=== PATIENT | male | born 1980 | race Caucasian/White ===

== ENCOUNTER 2019-07-10 11:18 | Emergency (ER) | payer OTHER ==
--- NOTE | 2019-07-10 11:27 | Emergency Department Report ---
Blank Doc - Documentation Documentation: 39-year-old male that presents with dizziness. Stated dizziness causes him to have anxiety. This initial assessment/diagnostic orders/clinical plan/treatment(s) is/are subject to change based on patient's health status, clinical progression and re- assessment by fellow clinical providers in the ED. Further treatment and workup at subsequent clinical providers discretion. Patient/guardians urged not to elope from the ED as their condition may be serious if not clinically assessed and managed. Initial orders include: 1- Patient sent to [facility] for further evaluation and treatment 2- labs 3- orthostatic vitals
--- NOTE | 2019-07-10 12:03 | Emergency Department Report ---
ED General Adult HPI - General Chief complaint: Dizziness Stated complaint: Anxiety/DIZZINESS Time Seen by Provider: 07/10/19 11:27 Source: patient Mode of arrival: Ambulatory Limitations: No Limitations - History of Present Illness Initial comments: 39-year-old male who is in residence at the [facility]. He states he stopped his Xanax 2 months ago. He would like to have it restarted because the BuSpar that they are prescribing at the [place] is "not working". States that he has asthma and he is still smoking. He states he wakes up in the morning and feels dizzy as if he has just had his first cigarette and it makes him "feel high". He is not dizzy at this time. He denies fever or chills headaches or any focal neurological symptoms. He is not hostile, violent or suicidal. He does not depression. He states he's had an anxiety disorder for many years. -: Gradual, days(s) (chief complaint as above for several days), year(s) Radiation: other (no pain complaint) Consistency: intermittent (states in the morning) Improves with: none Worsens with: none Associated Symptoms: denies other symptoms, other (anxiety) - Related Data Allergies Allergy/AdvReac Type Severity Reaction Status Date / Time No Known Allergies Allergy Unverified 07/10/19 11:21 ED Review of Systems ROS: Stated complaint: Anxiety/DIZZINESS Other details as noted in HPI Constitutional: denies: chills, fever Eyes: denies: eye pain, eye discharge, vision change ENT: denies: ear pain, throat pain Respiratory: denies: cough, shortness of breath, wheezing Cardiovascular: denies: chest pain, palpitations Endocrine: no symptoms reported Gastrointestinal: denies: abdominal pain, nausea, diarrhea Genitourinary: denies: urgency, dysuria Musculoskeletal: denies: back pain, joint swelling, arthralgia Skin: denies: rash, lesions Neurological: denies: headache, weakness, paresthesias Psychiatric: denies: anxiety, depression Hematological/Lymphatic: denies: easy bleeding, easy bruising ED Past Medical Hx - Past Medical History Previous Medical History?: Yes Hx Psychiatric Treatment: Yes (anxiety) - Surgical History Past Surgical History?: No - Social History Smoking Status: Current Every Day Smoker Substance Use Type: Tranquilizers ED Physical Exam - General Limitations: No Limitations General appearance: alert, in no apparent distress - Head Head exam: Present: atraumatic, normocephalic - Eye Eye exam: Present: normal appearance. Absent: scleral icterus - ENT ENT exam: Present: mucous membranes moist - Neck Neck exam: Present: normal inspection. Absent: tenderness, meningismus - Respiratory Respiratory exam: Present: normal lung sounds bilaterally. Absent: respiratory distress - Cardiovascular Cardiovascular Exam: Present: regular rate, normal rhythm. Absent: systolic murmur, diastolic murmur, rubs, gallop - GI/Abdominal GI/Abdominal exam: Present: soft, normal bowel sounds. Absent: distended, tenderness, guarding, rebound, rigid - Rectal Rectal exam: Present: deferred - Extremities Exam Extremities exam: Present: normal inspection, full ROM. Absent: tenderness - Back Exam Back exam: Present: normal inspection - Neurological Exam Neurological exam: Present: alert, oriented X3, CN II-XII intact. Absent: motor sensory deficit - Psychiatric Psychiatric exam: Present: normal affect, normal mood - Skin Skin exam: Present: warm, dry, intact, normal color. Absent: rash ED Course Vital Signs 07/10/19 11:22 Temperature 97.9 F Pulse Rate 105 H Respiratory 16 Rate Blood Pressure 119/71 O2 Sat by Pulse 96 Oximetry ED Medical Decision Making - Lab Data Result diagrams: 07/10/19 11:58 07/10/19 11:58 Laboratory Results - last 24 hr 07/10/19 07/10/19 07/10/19 11:58 11:58 11:58 WBC 7.2 RBC 5.06 H Hgb 15.0 Hct 44.5 MCV 88 MCH 30 MCHC 34 RDW 14.1 Plt Count 266 Lymph % (Auto) Analytics Manager [place] % (Auto) Analytics Manager Eos % (Auto) Analytics Manager Baso % (Auto) Analytics Manager Lymph # Analytics Manager [place] # Analytics Manager Eos # Analytics Manager Baso # Analytics Manager Seg Neutrophils % Analytics Manager Seg Neutrophils # Analytics Manager Sodium 139 Potassium 4.2 Chloride 102.2 Carbon Dioxide 20 L Anion Gap 21 BUN 19 Creatinine 0.8 Estimated GFR > 60 BUN/Creatinine Ratio 24 Glucose 135 H Calcium 9.0 Urine Color Yellow Urine Turbidity Clear Urine pH 5.0 Ur Specific [place] 1.021 Urine Protein <15 mg/dl Urine Glucose (UA) Neg Urine Ketones Neg Urine Blood Neg Urine Nitrite Neg Urine Bilirubin Neg Urine Urobilinogen < 2.0 Ur Leukocyte Esterase Neg Urine WBC (Auto) 1.0 Urine RBC (Auto) 1.0 U Epithel Cells (Auto) < 1.0 Critical care attestation.: If time is entered above; I have spent that time in minutes in the direct care of this critically ill patient, excluding procedure time. ED Disposition Clinical Impression: Dizziness, Anxiety Disposition: DC-01 TO HOME OR SELFCARE Is pt being admited?: No Does the pt Need Aspirin: No Condition: Stable Instructions: Dizziness (ED), Anxiety (ED) Additional Instructions: Return to the emergency department any acute change or problems. Continue with the usual providers regarding anxiety problem. Referrals: PRIMARY CARE, [Primary Care Provider] - 3-5 Days [facility] [Provider Group] - 3-5 Days Time of Disposition: 13:20
[2019-07-10 12:22] LABS: Bilirubin,Urine NEG (Negative); Blood,Urine NEG (Negative); Color,Urine Yellow (Yellow); Protein,Urine <15 mg/dL mg/dL (Negative); Urobilinogen,Urine < 2.0 mg/dL (<2.0)
[2019-07-10 12:25] LABS: Hematocrit 44.5 % (35.5-45.6); Mean Corpuscular HGB Conc 34 % (32-34); Mean Corpuscular Volume 88 fl (84-94); Platelet Count 266 K/mm3 (140-440); Red Blood Count 5.06 M/mm3 (3.65-5.03); Red Cell Distribution Width 14.1 % (13.2-15.2)
[2019-07-10 12:31] LABS: BUN/Creatinine Ratio 24; Blood Urea Nitrogen 19 mg/dL (9-20); Hemolysis Index 60
[2019-07-10 13:54] VITALS: BP 118/70
== END 2019-07-10 13:27 | disposition home or self-care (01) ==
LOC: ED 11:18
DX: R42 Dizziness and giddiness (principal); F41.9 Anxiety disorder, unspecified; F17.200 Nicotine dependence, unspecified, uncomplicated
CPT/HCPCS: 36415; 80048; 81001; 85025; 99283

== ENCOUNTER 2019-07-28 09:57 | Emergency (ER) | payer SELFPAY ==
[2019-07-28 10:21] VITALS: BP 142/82
[2019-07-28] MEDS ORDERED: IPRATROPIUM/ALBUTEROL SULFATE 3 ML AMPUL.NEB IH ONE ×2 (10:23→16:50)
[2019-07-28] MEDS ORDERED: IBUPROFEN 600 MG TAB PO ONE (15:52)
--- NOTE | 2019-07-28 16:32 | Emergency Department Report ---
ED General Adult HPI - General Chief complaint: Dyspnea/Respdistress Stated complaint: DAVY/STOMACH PAIN/RT LEG PAIN Time Seen by Provider: 07/28/19 15:51 Source: patient Mode of arrival: Ambulatory Limitations: No Limitations - History of Present Illness Initial comments: 39yo male states that he has SOB, wheezing x 2 hrs ago; nausea and vomiting x 1 day. He further states that he has ran out of his pain medication for his Right leg. He states that his right leg pain is a 6 right now. -: days(s) (1 day) Severity scale (0 -10): 7 - Related Data Previous Rx's Medication Instructions Recorded Last Taken Type ALBUTEROL Inhaler (OR & NICU) 2 puff IH QID PRN 30 Days #8.5 gram 07/28/19 Unknown Rx [ProAir HFA Inhaler] DOXYCYCLINE Hyclate [Vibramycin 100 mg PO Q12HR 10 Days #20 capsule 07/28/19 Unknown Rx CAP] Ibuprofen [Motrin] 600 mg PO Q8H PRN 7 Days #21 tablet 07/28/19 Unknown Rx Allergies Allergy/AdvReac Type Severity Reaction Status Date / Time No Known Allergies Allergy Verified 07/28/19 16:08 ED Review of Systems ROS: Stated complaint: DAVY/STOMACH PAIN/RT LEG PAIN Other details as noted in HPI Comment: All other systems reviewed and negative Constitutional: see HPI Respiratory: see HPI Musculoskeletal: as per HPI, arthralgia ED Past Medical Hx - Past Medical History Previous Medical History?: Yes Hx Psychiatric Treatment: Yes (anxiety) Hx Asthma: Yes - Surgical History Past Surgical History?: No - Social History Smoking Status: Never Smoker Substance Use Type: None - Medications Home Medications: Home Medications Medication Instructions Recorded Confirmed Last Taken Type ALBUTEROL Inhaler (OR & NICU) 2 puff IH QID PRN 30 Days #8.5 gram 07/28/19 Unknown Rx [ProAir HFA Inhaler] DOXYCYCLINE Hyclate [Vibramycin 100 mg PO Q12HR 10 Days #20 capsule 07/28/19 Unknown Rx CAP] Ibuprofen [Motrin] 600 mg PO Q8H PRN 7 Days #21 tablet 07/28/19 Unknown Rx ED Physical Exam - General Limitations: No Limitations ED Course Vital Signs 07/28/19 10:16 Temperature 98.3 F Pulse Rate 100 H Respiratory 24 Rate Blood Pressure 142/82 O2 Sat by Pulse 98 Oximetry ED Medical Decision Making - Medical Decision Making 39yo male states that he has SOB, wheezing x 2 hrs ago; nausea and vomiting x 1 day. He further states that he has ran out of his pain medication for his Right leg. He verbalizes that he is currently being seen by a pain specialist. Pt is a smoker. He states that his right leg pain is a 6 right now. Pt's flu labs are negative; he will be started on antibiotics and ZAHRA inhaler preemptively due to his tobacco use. He was instructed to use Delsym over the counter for his cough, see his PCP in 2-3 days and f/u with ER as needed. Critical care attestation.: If time is entered above; I have spent that time in minutes in the direct care of this critically ill patient, excluding procedure time. ED Disposition Clinical Impression: Bronchitis, Arthralgia Disposition: TO HOME OR SELFCARE Is pt being admited?: No Does the pt Need Aspirin: No Condition: Stable Instructions: Chronic Bronchitis (ED) Additional Instructions: Pt's flu labs are negative; he will be started on antibiotics and ZAHRA inhaler preemptively due to his tobacco use. He was instructed to use Delsym over the counter for his cough, see his PCP in 2-3 days and f/u with ER as needed. Prescriptions: Ibuprofen [Motrin] 600 mg PO Q8H PRN 7 Days #21 tablet PRN Reason: Pain ALBUTEROL Inhaler (OR & NICU) [ProAir HFA Inhaler] 2 puff IH QID PRN 30 Days #8.5 gram PRN Reason: Shortness Of Breath DOXYCYCLINE Hyclate [Vibramycin CAP] 100 mg PO Q12HR 10 Days #20 capsule Referrals: PRIMARY CARE, [Primary Care Provider] - 3-5 Days [facility] [Outside] - 3-5 Days Time of Disposition: 18:45
[2019-07-28] MEDS ORDERED: IPRATROPIUM/ALBUTEROL SULFATE 3 ML AMPUL.NEB IH SCH (20:00)
== END 2019-07-28 18:56 | disposition home or self-care (01) ==
LOC: ED 09:57
DX: J40 Bronchitis, not specified as acute or chronic (principal); M79.604 Pain in right leg; Z79.1 Long term (current) use of non-steroidal anti-inflammatories (NSAID); Z79.899 Other long term (current) drug therapy
CPT/HCPCS: 87400; 94640